=== PATIENT | male | born 1980 | race Caucasian/White ===

== ENCOUNTER 2024-02-24 01:17 | Emergency (ER) | payer MEDICARE, MEDICAID ==
[~2024-02-24] VITALS: Ht 149.9 cm; Wt 57.0 kg
[2024-02-24 01:21] VITALS: O2SAT 97
[2024-02-24 01:24] VITALS: BP 141/92; PULSE 100; RESP 16; TEMP 98; O2SAT 99
[2024-02-24 01:45] LABS: BASOPHILS % 0.2 % (0.0-2.0); EOSINOPHILS % 0.4 % (0.0-5.0); HEMATOCRIT. 45.6 % (42.0-52.0); HEMOGLOBIN. 15.6 g/dL (14.0-18.0); LYMPHOCYTES % 10.5 % (20.0-50.0); MEAN CORPUSCULAR HEMOGLOBIN 31.9 pg (28.0-32.0); MEAN CORPUSCULAR HGB CONC 34.3 g/dL (31.0-37.0); MEAN PLATELET VOLUME 7.9 fl (7.4-10.4); NEUTROPHILS % 82.9 % (40.0-76.0); PLATELET 230 x1000/uL (130-400); RED CELL DISTRIBUTION WIDTH 13.3 % (11.6-14.6); WHITE BLOOD COUNT 9.5 x1000/uL (4.5-11.0)
[2024-02-24 01:56] LABS: CHLORIDE 106 mEq/L (98-107); POTASSIUM 3.3 mEq/L (3.5-5.1); SODIUM 139 mEq/L (136-145)
[2024-02-24 01:57] LABS: CALCIUM 9.7 mg/dL (8.7-10.4); CARBON DIOXIDE 25 mEq/L (21-32)
[2024-02-24 02:02] LABS: CREATININE 0.8 mg/dL (0.6-1.3); GLUCOSE 97 mg/dL (70-105); UREA NITROGEN BLOOD 8 mg/dL (9-23)
== END 2024-02-24 03:10 | disposition home or self-care (01) ==
LOC: ER 01:56
DX: G40.909 Epilepsy, unspecified, not intractable, without status epilepticus (principal); I10 Essential (primary) hypertension; F19.90 Other psychoactive substance use, unspecified, uncomplicated; Z98.890 Other specified postprocedural states
CPT/HCPCS: 36415; 80048; 82542; 85025; 93005; 99284